=== PATIENT | female | born 1975 | race Two or more races ===

== ENCOUNTER 2018-03-28 17:43 | Emergency (ER) | payer SELFPAY ==
[~2018-03-28] VITALS: Ht 162.6 cm; Wt 63.0 kg
[2018-03-28 17:52] VITALS: BP 116/66
--- NOTE | 2018-03-28 18:11 | NUR ---
PT BIB [facility] FROM [facility] FOR MECHANICAL GLF. REPORTEDLY, PT SLIPPED ON MASHED POTATOES ON THE FLOOR OF THE [employer]. C/O MULTIPLE AREAS OF PAIN AT THIS TIME, INCLUDING LEFT KNEE, LEFT HAND AND LEFT LOW BACK. FAMILY MEMBER IS AT [facility]. VSS. CALL LIGHT IS WITHIN REACH.
[2018-03-28] MEDS ORDERED: IBUPROFEN 600 MG TABLET ONE (18:40)
[2018-03-28] MEDS: IBUPROFEN 200 MG TABLET PO ONE (18:42)
== END 2018-03-28 20:16 | disposition home or self-care (01) ==
LOC: ED 20:00
DX: S39.012A Strain of muscle, fascia and tendon of lower back, initial encounter (principal); S80.01XA Contusion of right knee, initial encounter; S60.221A Contusion of right hand, initial encounter; W01.0XXA Fall on same level from slipping, tripping and stumbling without subsequent striking against object, initial encounter; Y93.89 Activity, other specified; Y92.89 Other specified places as the place of occurrence of the external cause; Y99.8 Other external cause status
CPT/HCPCS: 72110; 99283